=== PATIENT | male | born 1995 | race Caucasian/White ===

== ENCOUNTER 2021-04-01 15:06 | Emergency (ER) | payer OTHER ==
[2021-04-01 15:41] VITALS: BP 155/91; PULSE 85; RESP 18; TEMP 99
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
== END 2021-04-01 18:04 | disposition home or self-care (01) ==
LOC: EC 15:06
DX: T59.811A Toxic effect of smoke, accidental (unintentional), initial encounter (principal); Z87.891 Personal history of nicotine dependence; X08.8XXA Exposure to other specified smoke, fire and flames, initial encounter
CPT/HCPCS: 71046; 82375; 93005; 99284